=== PATIENT | male | born 1980 | race Caucasian/White ===

== ENCOUNTER 2018-04-20 13:15 | Emergency (ER) | payer MEDICAID ==
[~2018-04-20] VITALS: Ht 170.2 cm; Wt 66.8 kg
[2018-04-20 13:29] VITALS: Ht 170.2 cm; Wt 66.8 kg
--- NOTE | 2018-04-20 16:10 | ERD ---
ER Documentation Chief Complaint Chief Complaint COUGHX 1 WEEK HPI 37-year-old male, previously healthy, presents the emergency department, complaining of 1 week with worsening of upper respiratory symptoms, including cough, runny nose, congestion and subjective fever. ROS All systems reviewed and are negative except as per history of present illness. Medications Home Meds Active Scripts Ranitidine Hcl* (Zantac*) 150 Mg Tablet, 150 MG PO BID PRN for EPIGASTRIC PAIN, #20 TAB Prov:JOANNE SOLANO MD 04/20/18 Albuterol Sulfate* (Proair HFA*) 8.5 Gm Hfa.aer.ad, 2 PUFF INH Q4 PRN for COUGH, #1 INHALER Prov:JOANNE SOLANO MD 04/20/18 Amoxicillin* (Amoxicillin*) 500 Mg Cap, 500 MG PO TID for 7 Days, CAP Prov:JOANNE SOLANO MD 04/20/18 Azithromycin* (Zithromax*) 250 Mg Tablet, 250 MG PO DAILY for 4 Days, TAB Prov:JOANNE SOLANO MD 04/20/18 Allergies Allergies: Coded Allergies: No Known Allergy (Unverified , 04/20/18) PMhx/Soc Medical and Surgical Hx: pt denies Surgical Hx Hx Miscellaneous Medical Probl: Yes (GERD) Hx Alcohol Use: No Hx Substance Use: No Hx Tobacco Use: No Smoking Status: Never smoker Physical Exam Vitals Vital Signs Date Temp Pulse Resp B/P (MAP) Pulse Ox O2 O2 Flow FiO2 Time Delivery Rate 04/20/18 82 19 98 21 17:38 04/20/18 101.1 115 16 141/94 99 13:29 (110) Physical Exam Const: No acute distress Head: Atraumatic Eyes: Normal Conjunctiva ENT: Normal External Ears, Nose and Mouth. Neck: Full range of motion. No meningismus. Resp: Clear to auscultation bilaterally Cardio: Regular rate and rhythm, no murmurs Abd: Soft, non tender, non distended. Normal bowel sounds Skin: No petechiae or rashes Back: No midline or flank tenderness Ext: No cyanosis, or edema Neur: Awake and alert Psych: Normal Mood and Affect Result Diagram: 04/20/18 1647 04/20/18 1647 Results 24 hrs Laboratory Tests Test 04/20/18 16:46 04/20/18 16:47 Urine Color YELLOW Urine Clarity SLIGHTLY CLOUDY Urine pH 5.0 Urine Specific [place] 1.017 Urine Ketones 2+ mg/dL Urine Nitrite NEGATIVE mg/dL Urine Bilirubin NEGATIVE mg/dL Urine Urobilinogen 2+ mg/dL Urine Leukocyte Esterase NEGATIVE Elis/ul Urine Microscopic RBC 5 /HPF Urine Microscopic WBC 0 /HPF Urine Mucus FEW /HPF Urine Hemoglobin 2+ mg/dL Urine Glucose NEGATIVE mg/dL Urine Total Protein NEGATIVE mg/dl White Blood Count 11.4 10^3/ul Red Blood Count 5.21 10^6/ul Hemoglobin 15.0 g/dl Hematocrit 43.4 % Mean Corpuscular Volume 83.3 fl Mean Corpuscular Hemoglobin 28.8 pg Mean Corpuscular Hemoglobin Concent 34.6 g/dl Red Cell Distribution Width 11.9 % Platelet Count 216 10^3/UL Mean Platelet Volume 9.1 fl Immature Granulocytes % 0.600 % Neutrophils % 85.1 % Lymphocytes % 9.5 % Monocytes % 4.5 % Eosinophils % 0.0 % Basophils % 0.3 % Nucleated Red Blood Cells % 0.0 /100WBC Immature Granulocytes # 0.070 10^3/ul Neutrophils # 9.7 10^3/ul Lymphocytes # 1.1 10^3/ul Monocytes # 0.5 10^3/ul Eosinophils # 0.0 10^3/ul Basophils # 0.0 10^3/ul Nucleated Red Blood Cells # 0.0 10^3/ul Sodium Level 142 mmol/L Potassium Level 3.7 mmol/L Chloride Level 98 mmol/L Carbon Dioxide Level 27 mmol/L Anion Gap 17 Blood Urea Nitrogen 8 mg/dl Creatinine 0.73 mg/dl Est Glomerular Filtrat Rate mL/min > 60 mL/min Glucose Level 103 mg/dl Calcium Level 9.6 mg/dl Total Bilirubin 2.4 mg/dl Direct Bilirubin 0.00 mg/dl Indirect Bilirubin 2.4 mg/dl Aspartate Amino Transf (AST/SGOT) 28 IU/L Alanine Aminotransferase (ALT/SGPT) 31 IU/L Alkaline Phosphatase 92 IU/L Total Protein 8.5 g/dl Albumin 5.0 g/dl Globulin 3.50 g/dl Albumin/Globulin Ratio 1.42 Current Medications Medications Dose Sig/Will Start Time Status Last (Trade) Ordered Route PRN Stop Time Admin Dose Reason Admin 1,000 mg ONCE STAT 04/20/18 DC 04/20/18 Acetaminophen PO 16:33 04/20/18 16:57 (Tylenol 16:36 Tab) Ibuprofen 400 mg ONCE STAT 04/20/18 DC 04/20/18 (Motrin) PO 16:33 04/20/18 16:57 16:36 Ondansetron 4 mg ONCE STAT 04/20/18 DC 04/20/18 HCl (Zofran ODT 16:33 04/20/18 16:57 Odt) 16:36 Sodium 1,000 ml @ Q1H ONCE 04/20/18 DC 04/20/18 Chloride 1,000 mls/hr IV 17:00 04/20/18 16:56 17:59 Ceftriaxone 50 ml @ ONCE ONCE 04/20/18 DC 04/20/18 Sodium 100 mls/hr IVPB 17:30 04/20/18 17:34 17:59 500 mg ONCE ONCE 04/20/18 DC 04/20/18 Azithromycin PO 17:30 04/20/18 17:34 (Zithromax) 17:31 Albuterol 5 mg ONCE STAT 04/20/18 DC 04/20/18 (Proventil HHN 17:26 04/20/18 17:36 0.083% (Neb)) 17:27 Ipratropium 0.5 mg ONCE ONCE 04/20/18 DC 04/20/18 [place]ote HHN 17:30 04/20/18 17:36 (Atrovent 17:31 0.02% (Neb)) Name: YANETHFILIPE Age/Sex: 37/M Attend Dr: JOANNE LUGO Acct: [id number] MR# : [id number] : 1980 Location: [facility] Admit: 04/20/18 ---- Specimen: [id number] Status: Complete Norbert: 04/20/18 Rcvd: 04/20/18 Source: [facility] Descrip: Procedure Result Microbiology INFLUENZA A & B BY EIA Final INFLU A&B BY EIA INFLUENZA A NEGATIVE (Ref Range Neg) INFLUENZA B NEGATIVE (Ref Range Neg) DIAGNOSTIC IMAGING REPORT Patient: FILIPE WOLFE : 1980 Age: 37 Sex: M MR #: [id number] DOS: 04/20/18 1633 Ordering MD: JOANNE SOLANO MD Location: [facility] Room/Bed: PROCEDURE: XR chest. CLINICAL INDICATION: Flu-like symptoms TECHNIQUE: A single portable view of the chest was obtained. COMPARISON: No prior exam FINDINGS: There is mild left basilar opacity representing atelectasis or airspace disease. A small left pleural effusion may be present. There is no right pleural effusion or pneumothorax. The cardiac and mediastinal contours are within normal limits. IMPRESSION: 1. Mild left basilar opacity representing atelectasis or airspace disease. A small left pleural effusion may be present. RPTAT: HRF Physician Janet Date Time Electronically viewed and signed by Physician Janet on 04/20/2018 16:55 Procedures/MDM Vital signs stable, no respiratory distress. Differential diagnosis include but not limited to: Respiratory infection bacterial/viral/fungal. Influenza, croup, bronchiolitis, pneumonitis, allergies, GERD. Less likely foreign body aspiration, cardiac related. Physical examination and clinical presentation consistent most likely with viral infection with early superimposed bacterial infection. During the ED course the patient remained stable, no new complaints. Treatment options and clinical impression discussed with the patient who agrees with management. The patient is stable to be treated outpatient and will be discharged home. Some side effects of prescribed medications (headache, rash, nausea, vomiting, diarrhea, interactions with other medications) were reviewed. The patient needs to follow up with the primary care provider in the next 48h. If symptoms persist, worsen or new symptoms develop, then patient should return to the ED immediately. Disclaimer: Inadvertent spelling and grammatical errors are likely due to EHR/dictation software use and do not reflect on the overall quality of patient care. Also, please note that the electronic time recorded on this note does not necessarily reflect the actual time of the patient encounter. Departure Diagnosis: Primary Impression: Cough Additional Impressions: Fever GERD (gastroesophageal reflux disease) Condition: Stable Additional Instructions: Thank you very much for allowing us to participate in your care. Your health and safety is our top priority at [facility]. Call your primary care doctor TOMORROW for an appointment during the next 2-4 days and bring all the information and medications prescribed. Have prescriptions filled and follow precisely the directions on the label. If the symptoms get worse and your provider is unavailable, return to the Emergency Department immediately. JOANNE SOLANO MD Apr 20, 2018 16:10
[2018-04-20] MEDS ORDERED: ACETAMINOPHEN 500 MG TAB PO STA (16:33)
[2018-04-20] MEDS ORDERED: ONDANSETRON (ODT) 4 MG TAB ODT STA (16:33)
[2018-04-20] MEDS ORDERED: IBUPROFEN 400 MG TAB PO STA (16:33)
[2018-04-20] MEDS ORDERED: SOD CHLORIDE 0.9% 1,000 ML IV ONE (17:00)
[2018-04-20] MEDS ORDERED: ALBUTEROL 0.083% (NEB) 2.5 MG/3 ML AMP HHN STA (17:26)
[2018-04-20] MEDS ORDERED: IPRATROPIUM (NEB) 0.5 MG/2.5 ML AMP HHN ONE (17:30)
[2018-04-20] MEDS ORDERED: CEFTRIAXONE 1 GM/50 ML (PMX) 50 ML IVPB ONE (17:30)
[2018-04-20] MEDS ORDERED: AZITHROMYCIN 250 MG TAB PO ONE (17:30)
[2018-04-20] MEDS ORDERED: AMOX500C2 PO (18:13)
[2018-04-20] MEDS ORDERED: AZIT250T PO (18:13)
[2018-04-20] MEDS ORDERED: ALBU8.5H8 INH (18:13)
[2018-04-20] MEDS ORDERED: RANI150T35 PO (18:13)
[2018-04-20 18:54] VITALS: BP 122/75; PULSE 123; RESP 20
== END 2018-04-20 19:01 | disposition home or self-care (01) ==
LOC: FTE 13:15
DX: R50.9 Fever, unspecified (principal); K21.9 Gastro-esophageal reflux disease without esophagitis
CPT/HCPCS: 71045; 80053; 81001; 85025; 87400; 94664; 96361; 96365; J0696; J7030; Z7502; Z7610